=== PATIENT | female | born 1990 | race Two or more races ===

== ENCOUNTER 2022-04-10 17:21 | Emergency (ER) | payer MEDICAID ==
[~2022-04-10] VITALS: Ht 160 cm; Wt 68.0 kg
[2022-04-10 20:05] VITALS: BP 129/80
[2022-04-10] MEDS ORDERED: MECL-159 PO (21:24)
== END 2022-04-10 21:46 | disposition home or self-care (01) ==
LOC: ER 17:30
DX: R42 Dizziness and giddiness (principal); R51.9 Headache, unspecified
CPT/HCPCS: 70450-TC